=== PATIENT | female | born 1975 | race Two or more races ===

== ENCOUNTER 2016-12-31 17:31 | Emergency (ER) | payer MEDICAID ==
[2016-12-31 19:08] LABS: ABSOLUTE NEUTROPHIL COUNT 2.3 K/mm3 (1.8-7.7); BASO % 0.4 % (0.2-1.0); EOS # 0.1 (0.0-0.5); EOS % 1.2 % (0.9-2.9); HEMATOCRIT 35.3 % (37.0-47.0); HEMOGLOBIN 11.7 gm/l (12.0-16.0); LYMPH # 2.1 (1.0-4.8); LYMPH % 43.1 % (15-45); MEAN CELL VOLUME 90.1 fl (81.0-99.0); MEAN CORPUSCULAR HEMOGLOBIN 29.8 pg (27.0-31.0); MEAN CORPUSCULAR HGB CONC 33.1 g/dl (33.0-37.0); MEAN PLATELET VOLUME 10.8 fl (7.4-10.4); MONO # 0.4 (0.0-0.8); NEUT % 46.3 % (43-75); PLATELET COUNT 215 K/mm3 (130-400); RED CELL DISTRIBUTION WIDTH 12.9 % (11.5-14.5)
[2016-12-31 19:44] LABS: SPECIFIC GRAVITY 1.015 (1.001-1.030); URINE BILIRUBIN NEGATIVE (NEGATIVE); URINE BLOOD 2+ (NEGATIVE); URINE GLUCOSE (UA) NEGATIVE (NEGATIVE); URINE LEUKOCYTE ESTERASE NEGATIVE (NEGATIVE); URINE NITRITE NEGATIVE (NEGATIVE); URINE PROTEIN NEGATIVE (NEGATIVE); URINE UROBILINOGEN NORMAL (0-1 mg/dl)
[2016-12-31 19:45] LABS: URINE APPEARANCE CLEAR; URINE COLOR STRAW
--- NOTE | 2016-12-31 20:02 | US ---
EXAMINATION: Obstetrical ultrasound less than 14 weeks. CLINICAL INDICATION:Vaginal bleeding with . Clinical estimated gestational age: 5 weeks 2 days : 9 , para 6 Technique:Transabdominal and transvaginal sonograms performed. Findings: There is no discernible gestational sac, pole, yolk sac or cardiac activity identified. There is prominent endometrium measuring 12 mm. No endometrial fluid collection is identified currently. Maternal adnexa: Right ovary 3.1 x 1.7 x 3.7. centimeters. There is a complex lesion within the right adnexa. With a fluid/fluid level. There is some peripheral Doppler flow. This complicated cystic lesion measures approximately 1.6 x 1.3 x 1.3 cm. There are also prominent adjacent fluid filled foci which may are reflect hydrosalpinx. Left ovary: 4.0 x 2.1 x 3.3 centimeters. There is a 2.2 x 1.8 x 2.1 cm cyst. Free fluid:Absent IMPRESSION: 1. Currently no intrauterine gestation is identified. This finding is nonspecific. Early intrauterine gestation, missed , 2. Complicated cystic lesion within the right adnexa. With apparent adjacent prominent fallopian tube. Although this may reflect an involuting/hemorrhagic cyst. Ectopic may need to be considered. 3. No free fluid is identified. Findings were discussed with Dr. Bass at 7:56 PM 12/31/2016
[2016-12-31 20:29] LABS: URINE BACTERIA RARE; URINE EPITHELIAL CELLS 0-2 /hpf; URINE RBC 0-2 /hpf; URINE WBC 0-2 /hpf
== END 2016-12-31 20:52 | disposition home or self-care (01) ==
LOC: ED 17:31
DX: O34.81 Maternal care for other abnormalities of pelvic organs, first trimester (principal); N83.201 Unspecified ovarian cyst, right side; O20.9 Hemorrhage in early pregnancy, unspecified; Z3A.01 Less than 8 weeks gestation of pregnancy

== ENCOUNTER 2017-01-02 00:24 | Emergency (ER) | payer MEDICAID ==
[2017-01-02 01:01] LABS: ABSOLUTE NEUTROPHIL COUNT 2.8 K/mm3 (1.8-7.7); BASO % 0.3 % (0.2-1.0); EOS # 0.1 (0.0-0.5); EOS % 1.2 % (0.9-2.9); HEMATOCRIT 33.7 % (37.0-47.0); HEMOGLOBIN 11.3 gm/l (12.0-16.0); IMM NEUT% 0.2 % (0-1); LYMPH # 2.3 (1.0-4.8); MEAN CELL VOLUME 89.2 fl (81.0-99.0); MEAN CORPUSCULAR HEMOGLOBIN 29.9 pg (27.0-31.0); MEAN CORPUSCULAR HGB CONC 33.5 g/dl (33.0-37.0); MEAN PLATELET VOLUME 10.4 fl (7.4-10.4); MONO # 0.6 (0.0-0.8); MONO % 9.7 % (4-12); NEUT % 48.6 % (43-75); PLATELET COUNT 205 K/mm3 (130-400); RED CELL DISTRIBUTION WIDTH 12.7 % (11.5-14.5)
[2017-01-02 01:21] LABS: ALB/GLOB RATIO 1.3 (>1.0); ALBUMIN 3.5 gm/dL (3.5-5.7)
[2017-01-02 01:23] LABS: SPECIFIC GRAVITY 1.015 (1.001-1.030); URINE APPEARANCE SL CLOUDY; URINE BILIRUBIN NEGATIVE (NEGATIVE); URINE BLOOD 4+ (NEGATIVE); URINE COLOR YELLOW; URINE GLUCOSE (UA) NEGATIVE (NEGATIVE); URINE LEUKOCYTE ESTERASE NEGATIVE (NEGATIVE); URINE NITRITE NEGATIVE (NEGATIVE); URINE PROTEIN NEGATIVE (NEGATIVE); URINE UROBILINOGEN NORMAL (0-1 mg/dl)
[2017-01-02 01:34] LABS: URINE WBC 0-1 /hpf
[2017-01-02 01:35] LABS: URINE BACTERIA TRACE
[2017-01-02] MEDS ORDERED: KETOROLAC TROMETHAMINE 30 MG/ML 1 ML VIAL ONE (02:22)
== END 2017-01-02 03:51 | disposition home or self-care (01) ==
LOC: ED 00:24
DX: O03.9 Complete or unspecified spontaneous abortion without complication (principal); Z3A.01 Less than 8 weeks gestation of pregnancy
CPT/HCPCS: 84702; 85025; 80053; 81001; 99284 ×2; 96374; J1885